=== PATIENT | male | born 1945 | race Caucasian/White ===

== ENCOUNTER → 2017-10-25 | Outpatient (CLI) | payer MEDICARE, BC | END | disposition home or self-care (01) | LOC: PCVCCLINIC 11:16 | PROVIDERS: ATTEND Internal Medicine | DX: I25.10 Atherosclerotic heart disease of native coronary artery without angina pectoris (principal); I35.0 Nonrheumatic aortic (valve) stenosis; I10 Essential (primary) hypertension; I65.23 Occlusion and stenosis of bilateral carotid arteries; E78.5 Hyperlipidemia, unspecified; R94.31 Abnormal electrocardiogram [ECG] [EKG]; Z87.891 Personal history of nicotine dependence; Z79.82 Long term (current) use of aspirin; Z79.899 Other long term (current) drug therapy | CPT/HCPCS: 80061; 93005; G0463 ==

== ENCOUNTER → 2018-04-24 | Outpatient (CLI) | payer MEDICARE, BC | END | disposition home or self-care (01) | LOC: PCVCIMAG 09:28 | DX: I25.119 Atherosclerotic heart disease of native coronary artery with unspecified angina pectoris (principal); E78.5 Hyperlipidemia, unspecified; I10 Essential (primary) hypertension; I65.23 Occlusion and stenosis of bilateral carotid arteries; Z87.891 Personal history of nicotine dependence; Z79.899 Other long term (current) drug therapy; Z79.82 Long term (current) use of aspirin | CPT/HCPCS: 80061; 93005; 93306; G0463 ==

== ENCOUNTER → 2018-05-03 | Outpatient (CLI) | payer MEDICARE, BC ==
[~2018-05-03] MED LIST: REGADENOSON 0.4 MG/5 ML DISP.SYRIN. IV
== END | disposition home or self-care (01) ==
LOC: PCVCIMAG 08:29
DX: I25.10 Atherosclerotic heart disease of native coronary artery without angina pectoris (principal); E78.5 Hyperlipidemia, unspecified; I25.2 Old myocardial infarction; Z87.891 Personal history of nicotine dependence
CPT/HCPCS: 78452; 93017; A9500; J2785

== ENCOUNTER → 2018-10-02 | Outpatient (CLI) | payer MEDICARE, BC | END | disposition home or self-care (01) | LOC: PCVCCLINIC 12:46 | PROVIDERS: ATTEND Internal Medicine | DX: I25.10 Atherosclerotic heart disease of native coronary artery without angina pectoris (principal); R94.31 Abnormal electrocardiogram [ECG] [EKG]; I35.0 Nonrheumatic aortic (valve) stenosis; E78.5 Hyperlipidemia, unspecified; I10 Essential (primary) hypertension; I65.23 Occlusion and stenosis of bilateral carotid arteries; Z79.82 Long term (current) use of aspirin; Z79.899 Other long term (current) drug therapy; Z87.891 Personal history of nicotine dependence | CPT/HCPCS: 80061; 93005; G0463 ==

== ENCOUNTER → 2019-04-30 | Outpatient (CLI) | payer MEDICARE, BC ==
--- NOTE | 2019-04-30 10:39 | PCVCIMAG ---
APPROVED REPORT Study performed: 04/30/2019 09:10:33 EXAM: Comprehensive 2D, Doppler, and color-flow Echocardiogram Patient Location: Echo lab Room #: 3Status: routine BSA: 2.40 HR: 76 bpmBP: 136/80 mmHg Rhythm: NSR Other Information Study Quality: Adequate Risk Factors: Cardiac Risk Factors: HTN, Hyperlipidemia Indications Aortic Valve Disease CAD Aortic Stenosis 2D Dimensions IVSd: 10.25 (7-11mm)LVOT Diam: 20.14 (18-24mm) LVDd: 47.38 mm PWd: 11.05 (7-11mm)Ascending Ao: 29.45 (22-36mm) LVDs: 36.08 (25-40mm) Left Atrium: 42.05 (27-40mm) Aortic Root: 29.27 mm LV Single Plane 4CH: 38.88 % LV Single Plane 2CH: 42.16 % Biplane EF: 39.2 % Volumes Left Atrial Volume (Systole) Single Plane 4CH: 65.04 mLSingle Plane 2CH: 56.52 mL LA ESV Index: 26.00 mL/m2 Aortic Valve AoV Peak Meño.: 4.12 m/s AO Peak Gr.: 67.87 mmHgLVOT Max P.86 mmHg AO Mean Gr.: 44.48 mmHgLVOT Mean P.81 mmHg AO V2 Mean: 3.20 m/sLVOT Max V: 0.85 m/s AO V2 VTI: 109.76 cmLVOT Mean V: 0.66 m/s CARLA (VTI): 0.64 [id number] V1 VTI: 22.21 cm CARLA Vmax: 0.65 cm2 AI Vmax: 3.12 m/sSV (LVOT): 70.71 mL AI [place]: 1.14 m/s2 AI PHT: 811.86 ms Mitral Valve E/A Ratio: 0.8 MV Decel. Time: 284.56 ms MV E Max Meño.: 0.66 m/s MV A Meño.: 0.85 m/s IVRT: 72.66 ms TDI E/Lateral E': 8.25E/Medial E': 13.20 Medial E' Meño.: 0.05 m/s Lateral E' Meño.: 0.08 m/s Pulmonary Valve PV Peak Meño.: 1.16 m/sPV Peak Gr.: 5.42 mmHg Pulmonary Vein P Vein S: 0.58 m/sP Vein A: 0.29 m/s P Vein D: 0.46 m/sP Vein A Dur.: 103.8 msec P Vein S/D Ratio: 1.26 Tricuspid Valve RAP Estimate: 7.00 mmHg Left Ventricle The left ventricle is normal size. There is normal LV segmental wall motion. There is normal left ventricular wall thickness. The left ventricular systolic function is normal. The left ventricular ejection fraction is within the normal range. LVEF is 50-55%. Mild diastolic dysfunction is present (impaired relaxation pattern). Right Ventricle The right ventricle is normal size. The right ventricular systolic function is normal. Atria The left atrium size is normal. The right atrium size is normal. Aortic Valve Aortic valve is calcified. Mild aortic regurgitation. Calculated aortic valve area is 0.7 cm2 with maximum pressure gradient of 68 mmHg and mean pressure gradient of 40 mmHg. Mitral Valve The mitral valve is normal in structure. Trace mitral regurgitation. No evidence of mitral valve stenosis. Tricuspid Valve The tricuspid valve is normal in structure. Trace tricuspid regurgitation. Unable to assess PA pressure. Pulmonic Valve The pulmonary valve is normal in structure. There is no pulmonic valvular regurgitation. Great Vessels The aortic root is normal in size. IVC is normal in size and collapses >50% with inspiration. Pericardium There is no pericardial effusion. <Conclusion> The left ventricular systolic function is normal. There is normal LV segmental wall motion. LVEF is 50-55%. Mild diastolic dysfunction Aortic valve is calcified, severely stenotic. Calculated aortic valve area is 0.7 cm2 with maximum pressure gradient of 68 mmHg and mean pressure gradient of 40 mmHg. Mild aortic regurgitation. The mitral valve is normal in structure. Trace mitral regurgitation. Pulmonary artery pressure could not be reliably ascertained. There is no pericardial effusion.
== END | disposition home or self-care (01) ==
LOC: PCVCIMAG 09:00
PROVIDERS: ATTEND Internal Medicine
DX: I35.1 Nonrheumatic aortic (valve) insufficiency (principal); I35.0 Nonrheumatic aortic (valve) stenosis; I25.10 Atherosclerotic heart disease of native coronary artery without angina pectoris; E78.5 Hyperlipidemia, unspecified; I10 Essential (primary) hypertension; I65.23 Occlusion and stenosis of bilateral carotid arteries; Z87.891 Personal history of nicotine dependence
CPT/HCPCS: 36415; 80061; 93005; 93306; G0463

== ENCOUNTER → 2019-11-04 | Outpatient (CLI) | payer MEDICARE, BC ==
--- NOTE | 2019-11-04 12:30 | PCVCIMAG ---
APPROVED REPORT Study performed: 11/04/2019 10:32:48 EXAM: Comprehensive 2D, Doppler, and color-flow Echocardiogram Patient Location: Echo lab Room #: 2Status: routine BSA: 2.40 HR: 75 bpmBP: 116/82 mmHg Rhythm: NSR Other Information Study Quality: Adequate Risk Factors: Cardiac Risk Factors: HTN, Hyperlipidemia Indications Aortic Valve Disease Hypertension/HDD 2D Dimensions IVSd: 8.38 (7-11mm)LVOT Diam: 22.47 (18-24mm) LVDd: 50.63 mm PWd: 8.24 (7-11mm)Ascending Ao: 31.82 (22-36mm) LVDs: 34.53 (25-40mm) Left Atrium: 30.03 (27-40mm) Aortic Root: 24.94 mm LV Single Plane 4CH: 46.27 % LV Single Plane 2CH: 50.02 % Biplane EF: 49.8 % Volumes Left Atrial Volume (Systole) Single Plane 4CH: 84.51 mLSingle Plane 2CH: 52.99 mL Biplane LA Volume: 67.00 mLLA ESV Index: 28.00 mL/m2 Aortic Valve AoV Peak Meño.: 4.00 m/s AO Peak Gr.: 64.30 mmHgLVOT Max P.90 mmHg AO Mean Gr.: 41.11 mmHgLVOT Mean P.88 mmHg AO V2 Mean: 3.12 m/sLVOT Max V: 0.84 m/s AO V2 VTI: 89.79 cmLVOT Mean V: 0.65 m/s CARLA (VTI): 0.99 [id number] V1 VTI: 22.36 cm CARLA Vmax: 0.84 cm2 AI Vmax: 3.13 m/sSV (LVOT): 88.60 mL AI [place]: 1.58 m/s2 AI PHT: 602.29 ms Mitral Valve E/A Ratio: 0.9 MV Decel. Time: 228.13 ms MV E Max Meño.: 0.67 m/s MV A Meño.: 0.74 m/s IVRT: 86.51 ms TDI E/Lateral E': 11.17E/Medial E': 16.75 Medial E' Meño.: 0.04 m/s Lateral E' Meño.: 0.06 m/s Pulmonary Valve PV Peak Meño.: 1.13 m/sPV Peak Gr.: 5.09 mmHg Pulmonary Vein P Vein S: 0.56 m/sP Vein A: 0.34 m/s P Vein D: 0.31 m/sP Vein A Dur.: 93.4 msec P Vein S/D Ratio: 1.81 Tricuspid Valve TR Peak Meño.: 2.23 m/s TR Peak Gr.: 19.90 mmHg TV Vmax: 0.50 m/sPA Pressure: 27.00 mmHg Left Ventricle The left ventricle is normal size. There is normal LV segmental wall motion. There is normal left ventricular wall thickness. The left ventricular systolic function is normal. The left ventricular ejection fraction is within the normal range. LVEF is 55%. Mild diastolic dysfunction is present (impaired relaxation pattern). Right Ventricle The right ventricle is normal size. The right ventricular systolic function is normal. Atria The left atrium size is normal. The right atrium size is normal. Aortic Valve Aortic valve is probably trileaflet, heavily calcified. Mild aortic regurgitation. There is severe valvular aortic stenosis. Calculated aortic valve area is 0.9 cm2 with maximum pressure gradient of 64 mmHg and mean pressure gradient of 41 mmHg. Mitral Valve The mitral valve is normal in structure. There is no mitral valve regurgitation noted. No evidence of mitral valve stenosis. Tricuspid Valve The tricuspid valve is normal in structure. Mild tricuspid regurgitation with a PA pressureof 27 mmHg. Pulmonic Valve The pulmonary valve is normal in structure. There is no pulmonic valvular regurgitation. Great Vessels The aortic root is normal in size. The ascending aorta is normal in size. Aortic arch is normal in caliber. IVC is normal in size and collapses >50% with inspiration. Pericardium There is no pericardial effusion. There is no pleural effusion. <Conclusion> The left ventricular systolic function is normal. There is normal LV segmental wall motion. LVEF is 55%. Mild diastolic dysfunction Aortic valve is probably trileaflet, heavily calcified. 1 Calculated aortic valve area is 0.9 cm2 with maximum pressure gradient of 64 mmHg and mean pressure gradient of 41 mmHg. Mild aortic regurgitation. Moderately severe to severe aortic stenosis. The mitral valve is normal in structure. No mitral valve regurgitation Mild tricuspid regurgitation with a pulmonary artery pressureof 27 mmHg. There is no pericardial effusion.
== END | disposition home or self-care (01) ==
LOC: PCVCIMAG 09:59
PROVIDERS: ATTEND Internal Medicine
DX: I08.2 Rheumatic disorders of both aortic and tricuspid valves (principal); I10 Essential (primary) hypertension; E78.5 Hyperlipidemia, unspecified; I25.10 Atherosclerotic heart disease of native coronary artery without angina pectoris; I65.23 Occlusion and stenosis of bilateral carotid arteries; I25.5 Ischemic cardiomyopathy; Z87.891 Personal history of nicotine dependence; Z79.82 Long term (current) use of aspirin; Z79.899 Other long term (current) drug therapy; Z72.89 Other problems related to lifestyle
CPT/HCPCS: 36415; 80061; 93005; 93306; G0463